=== PATIENT | male | born 1990 | race Hispanic/Latino ===

== ENCOUNTER 2021-11-13 17:41 | Emergency (ER) | payer BC ==
[~2021-11-13] VITALS: Ht 190.5 cm; Wt 81.6 kg
[2021-11-13 17:41] VITALS: BP_SYST 139; BP_SYST 143; BP_DIAS 72; BP_DIAS 77
[2021-11-13] MEDS ORDERED: ATIVAN IV STA (17:45)
[2021-11-13] MEDS ORDERED: BOOSTRIX IM ONE ×2 (18:00→18:14)
[2021-11-13] MEDS ORDERED: ATIVAN ONE (18:14)
--- NOTE | 2021-11-13 18:34 | DIREP ---
PROCEDURE:CT HEAD OR BRAIN W/O CONTRAST COMPARISON:None. INDICATIONS:trauma TECHNIQUE:CT images were created without intravenous contrast. FINDINGS: VENTRICLES:The ventricles are normal in size and configuration. CEREBRUM:Subarachnoid hemorrhage seen throughout the left frontal lobe. Lenticular shaped hemorrhage in the right middle cranial fossa measuring approximately 4.0 x 2.4 cm. Suspicious for epidural hematoma. Difficult to exclude atypical subdural hematoma without coronal and sagittal reformatted images. No midline shift or mass effect. CEREBELLUM:Negative. BRAINSTEM:Negative. BASAL CISTERNS:Negative. SKULL:Normal. SINUSES:Normal. OTHER:Large right parietal scalp hematoma measuring approximately 5.4 x 1.2 cm in cross-section. No overlying skin laceration. CONCLUSION: 1. Subarachnoid hemorrhage layering along the sulci of the left frontal lobe 2. Large right parietal scalp hematoma. 3. Lenticular shaped hemorrhage within the right middle cranial fossa. Morphology is concerning for epidural hematoma. Difficult to exclude subdural hematoma without coronal and sagittal reformatted images. This report was called by telephone at 6:31 pm on November 13, 2021 to Kana Ken Dictated by: Fredo Whitaker DO on 11/13/2021 at 06:27 PM
--- NOTE | 2021-11-13 18:35 | NUR ---
[facility] EDP ON PHONE WITH [facility] ABOUT TRANSFER
--- NOTE | 2021-11-13 18:40 | NUR ---
[facility] ACCEPTED FOR TRANSPORT TO [facility] WILL BE HERE 15 MINUTES. INITIAL CONTACT WITH [facility] @ [id number] KAYLIE EHNRY RN ACCEPTING PHYSICIAN- @ [id number] DX: EPIDURAL BLEED AND SUBARCHNOID BLEED ALERT AND ORIENTED TO NAME ONLY, ON ROOM AIR, BOTH PARENTS AT BEDSIDE. ALL PERIPHERAL PERIPHERAL PULSES PALPABLE. NO DISCOLORATION NOTED TO EXTREMITIES. PERRLA.
--- NOTE | 2021-11-13 18:44 | ER.PDOC ---
General Chief Complaint: Head Injury Stated Complaint: HEAD LACERATION Time seen by MD: 17:45 Source: patient, EMS Exam Limitations: clinical condition History of Present Illness Initial Comments Patient is a 31-year-old male with a past medical history of alcohol abuse with history of withdrawing that resulted in seizures who comes in via EMS after having a withdrawal seizure less than 30 minutes prior to arrival. EMS states that patient's last drink was 1 day ago and today he had a seizure fell landed on the right side of his head and sustained a laceration to that side. EMS states that when he initially picked patient up he was postictal seeming confused I did not know really where he was however in route he became more alert and and oriented. EMS states the patient has bilateral scleral icterus. Patient states that he has some tenderness to the right side of his scalp, States that it is a stinging pain made worse when it is touched better when is left alone. Patient otherwise states that he has complaints of generalized shakiness that he attributes to his lack of alcohol intake recently.Patient denies any other complaints at this time. Where: other Severity: moderate Location: parietal Method of Injury: fell Associated symptoms: Seizure Allergies: Coded Allergies: No Known Allergies (Unverified , 11/13/21) Past Medical History Medical History: other Surgical History: no surgical history Family History Significant Family History: no pertinent family hx Social History Smoking: non-smoker Alcohol Use: heavy Drug Use: none Reviewed Nursing Reviewed: Vital Signs, Abn. Noted, Nursing Assessment Review of Systems Constitutional: denies no symptoms reported, denies see HPI, denies chills, denies diaphoresis, denies fever, denies malaise, denies weakness, denies other Eyes: denies no symptoms reported, denies see HPI, denies blindness, denies blurred vision, denies drainage, denies decreased acuity, denies foreign body sensation, denies inflammation, denies pain, denies photophobia, denies previous injury, denies shadows, denies tunnel vision, denies vision change, denies contact lenses, denies glasses, denies other Ears, Nose, Mouth, Throat: denies no symptoms reported, denies see HPI, denies ear pain, denies ear discharge, denies nose pain, denies nose discharge, denies epistaxis, denies mouth pain, denies mouth swelling, denies loose teeth, denies throat pain, denies throat swelling Respiratory: denies no symptoms reported, denies see HPI, denies cough, denies orthopnea, denies shortness of breath, denies stridor, denies wheezing, denies other Cardiovascular: denies no symptoms reported, denies see HPI, denies chest pain, denies edema, denies palpitations, denies syncope, denies other Gastrointestinal: denies no symptoms reported, denies see HPI, denies abdominal pain, denies constipation, denies diarrhea, denies nausea, denies vomiting, denies other Genitourinary: denies no symptoms reported, denies see HPI, denies discharge, denies dysuria, denies frequency, denies hematuria, denies pain, denies other Musculoskeletal: denies no symptoms reported, denies see HPI, denies back pain, denies gout, denies joint pain, denies joint swelling, denies muscle pain, denies muscle stiffness, denies neck pain, denies other Skin: other (Lack and scalp) Psychiatric/Neurological: headache, tonic-clonic seizures Endocrine: denies no symptoms reported, denies see HPI, denies excessive sweating, denies flushing, denies intolerance to cold, denies intolerance to heat, denies increased hunger, denies increased thrist, denies increased urine, denies unexplained weight gain, denies unexplaned weight loss, denies other Hematologic/Lymphatic: denies no symptoms reported, denies see HPI, denies anemia, denies blood clots, denies easy bleeding, denies easy bruising, denies swollen glands, denies other Physical Exam General Appearance: Other (Patient somewhat confused otherwise alert and oriented. Does answer questions kind of awkwardly and weird.) Head: Lacerations (Right-sided scalp laceration about 2 to 3 cm will need to clean up for more in-depth look will do this after CT scan.) Eye: PERRL, EOMI, No nystagmus (Patient has scleral icterus) ENT: Nml external inspection (Other than tongue fasciculations as well as jaundice underneath the tongue) Neck: non-tender, painless ROM, trachea midline Cardiovascular/Respiratory: Regular Rate, Rhythm, No M/R/G, Normal Peripheral Pulses, No JVD, Normal Breath Sounds, No Respiratory Distress Gastrointestinal: Normal Bowel Sounds, No Organomegaly, No Pulsatile Mass, Non Tender, Soft Back: Normal Inspection, No CVA Tenderness, No Vertebral Tenderness Extremities: Normal Range of Motion, Non-Tender, Normal Inspection, No Pedal Edema, No Calf Tenderness, Normal Capillary Refill NEURO/PSYCH: Alert, Cooperative, Slow to respond, Confused Cranial Nerves: Normal Hearing, Normal Speech, PERRL Coordination/Gait: Normal Finger to Nose Motor/Sensory: No Motor Deficit, No Sensory Deficit, No Pronator Drift, Negative Babinski's Sign Skin: Normal Color, Warm/Dry Lymphatic: No Adenopathy Results/Orders Results/Orders Orders - VENUS JULIAN MD Cbc With Auto Diff (11/13/21 17:45) Comprehensive Metabolic Panel (11/13/21 17:45) Ct Head Wo Contrast (11/13/21 17:45) Urinalysis (11/13/21 17:45) Ekg-Routine (11/13/21 17:45) Ammonia (11/13/21 17:45) Saline Lock (11/13/21 17:45) Diph,Pertuss(Acell),Tet Vac/Pf (Boostrix (11/13/21 18:00) Lorazepam (Ativan) (11/13/21 17:45) Drug Scrn Med W Confirmation (11/13/21 17:45) Lorazepam (Ativan) (11/13/21 18:14) Diph,Pertuss(Acell),Tet Vac/Pf (Boostrix (11/13/21 18:14) PT (11/13/21 18:32) Partial Thromboplastin Time. (11/13/21 18:32) Vital Signs Date Time Temp Pulse Resp B/P (MAP) Pulse Ox O2 Delivery O2 Flow Rate FiO2 11/13/21 17:56 18 11/13/21 17:41 98.0 88 18 11/13/21 17:41 98.0 88 18 139/77 (97) 98 Room Air* 0 21 11/13/21 17:41 98.0 87 18 98 Administered Medications Medications (Trade) Dose Ordered Sig/Kimani Route PRN Reason Start Time Stop Time Status Last Admin Dose Admin Diphtheria/ Tetanus/Acell Pertussis (Boostrix) 0.5 ml ONCE ONCE IM 11/13/21 18:00 11/13/21 18:01 DC 10/3/22 18:41 0.5 ML Lorazepam (Ativan) 2 mg STAT STAT IV 11/13/21 17:45 11/13/21 17:47 DC 11/13/21 18:41 2 MG Progress Progress Patient here with withdrawal seizure it is unclear whether the seizure happened for sure patient fell hit his head and had a seizure however he was possibly po stictal when he was picked up by EMS EMS gave him fluids we will give him some lorazepam we will allow him to finish the bag of fluids we will plan on CT scan we will plan on repairing the laceration we will update tetanus we will continue to monitor patient we will obtain a lab work-up as well. 1835 reassessmentpatient is still about the same mental status received a phone call from the radiologist stating that patient had a left subarachnoid hemorrhage as well as an epidural in the right middle cerebral fossa without shift at this time. However he states that he is concerned for the epidural bleed. Immediately called [facility] for transfer will transfer patient by air [facility] auto accepted from ER to ER for trauma under Dr. Gardner. Discussed with nursing staff they are sending off labs and beginning efforts to get patient transferred by air. Patient continues to be hemodynamically normal however will monitor closely. 185air alive here to transport patient. Patient hemodynamically normal at this time. Discussed with EMS personally presentation and findings. ER DEPART Departure Time of Disposition: 19:02 Disposition: 09 ADMITTED INPATIENT ([facility]) Impression: Primary Impression: Epidural hematoma Additional Impressions: Subarachnoid hematoma Scalp hematoma Laceration of scalp ALCOHOL ABUSE WITH WITHDRAWAL, UNSPECIFIED Alcohol withdrawal seizure Condition: Stable Patient Instructions: Head Injury, Adult, [id number] Referrals: PCP,UNKNOWN (PCP) PRIMARY CARE PROVIDER Duration or Time Spent with Pa: 80 Critical Care Note Total Time (mins): 60 Comments Patient here with alcohol withdrawal seizures that resulted in an epidural bleed this is a critical trauma finding. This critical care time is separate from any other billable procedure. Without emergent intervention patient's health could quickly demise. Problem Qualifiers Additional Impressions: Subarachnoid hematoma Encounter type: initial encounter Loss of consciousness presence/duration: unknown LOC status Qualified Codes: S06.6XAA - Traumatic subarachnoid hemorrhage with loss of consciousness status unknown, initial encounter Scalp hematoma Encounter type: initial encounter Qualified Codes: S00.03XA - Contusion of scalp, initial encounter Laceration of scalp Encounter type: initial encounter Qualified Codes: S01.01XA - Laceration without foreign body of scalp, initial encounter Alcohol withdrawal seizure Complication of substance-induced condition: with perceptual disturbance Qualified Codes: F10.932 - Alcohol use, unspecified with withdrawal with perceptual disturbance; R56.9 - Unspecified convulsions VENUS JULIAN MD Nov 13, 2021 18:44
[2021-11-13 18:57] LABS: BASOPHIL % 0.3 % (0.0-0.2); EOSINOPHIL # 0.1 10^3/uL (0.0-0.2); EOSINOPHIL % 0.5 % (0.0-5.0); LYMPHOCYTES # 1.23 10^3/uL1 (1.0-4.8); LYMPHOCYTES % 12.3 % (24.0-44.0); MEAN CORP HGB 26.4 pg (26-34); MONOCYTES # 0.6 10^3/uL (0.3-0.8); MONOCYTES % 5.8 % (5.0-12.0); NEUTROPHIL # 8.1 10^3/uL (1.8-7.7); NEUTROPHILS % 80.8 % (41.0-85.0); PLATELET COUNT 95 10^3/uL (150-400); RED CELL DISTRIBUTION WIDTH 20.3 % (11.5-14.5)
[2021-11-13 19:05] VITALS: BP 143/72
[2021-11-13 19:05] LABS: CARBON DIOXIDE 32.3 mmol/L (20.0-32)
[2021-11-13 19:28] LABS: ANISOCYTOSIS 1+ (NEGATIVE)
== END 2021-11-13 19:05 | disposition admitted as inpatient to this hospital (09) ==
LOC: EDSEX 17:41 → ER 17:41 → EDBD 17:41 → ER 19:05
DX: S01.01XA Laceration without foreign body of scalp, initial encounter (principal); S06.4X9A Epidural hemorrhage with loss of consciousness of unspecified duration, initial encounter; S06.6XAA Traumatic subarachnoid hemorrhage with loss of consciousness status unknown, initial encounter; F10.932 Alcohol use, unspecified with withdrawal with perceptual disturbance; W18.39XA Other fall on same level, initial encounter; Y93.9 Activity, unspecified; Y92.89 Other specified places as the place of occurrence of the external cause; Y99.8 Other external cause status
CPT/HCPCS: 99291; 96374; 70450; 90471; 90715; 80053; 85025; 36415; 82140; 85610; 85730; J2060; 93005